=== PATIENT | male | born 1970 | race Caucasian/White ===

== ENCOUNTER 2020-09-17 00:16 | Emergency (ER) | payer MEDICAID, OTHER ==
[~2020-09-17] VITALS: Ht 180.3 cm; Wt 126.8 kg
[~2020-09-17 00:16] MED LIST: HYDR50TA4 PO; LISI40TA13 PO; LORA1TAB PO
[2020-09-17 00:20] VITALS: BP 163/119
== END 2020-09-17 00:38 ==
LOC: ER 00:17
DX: S00.91XA Abrasion of unspecified part of head, initial encounter (principal); I10 Essential (primary) hypertension; Z98.890 Other specified postprocedural states; Z72.89 Other problems related to lifestyle; Z79.899 Other long term (current) drug therapy; X58.XXXA Exposure to other specified factors, initial encounter; Y93.89 Activity, other specified; Y92.89 Other specified places as the place of occurrence of the external cause; Y99.8 Other external cause status
CPT/HCPCS: 99283

== ENCOUNTER 2021-10-08 02:59 | Emergency (ER) | payer MEDICAID ==
[~2021-10-08] VITALS: Ht 180.3 cm; Wt 65.9 kg
[2021-10-08 03:00] VITALS: BP 158/105
[2021-10-08] MEDS ORDERED: LORazepam 2 mg/ml vial IV ONE (03:10)
[2021-10-08] MEDS ORDERED: LORazepam 2 mg/ml vial IM ONE (03:10)
== END 2021-10-08 05:06 ==
LOC: ER 03:00
DX: S01.01XA Laceration without foreign body of scalp, initial encounter (principal); R45.1 Restlessness and agitation; I10 Essential (primary) hypertension; Z98.890 Other specified postprocedural states; Z79.899 Other long term (current) drug therapy; Z72.89 Other problems related to lifestyle; X58.XXXA Exposure to other specified factors, initial encounter; Y93.89 Activity, other specified; Y92.89 Other specified places as the place of occurrence of the external cause; Y99.8 Other external cause status
CPT/HCPCS: 12001; 70450; 74018; 99284

== ENCOUNTER 2024-11-14 00:30 | Emergency (ER) | payer MEDICAID ==
[~2024-11-14] VITALS: Ht 182.9 cm; Wt 152.0 kg
[2024-11-14] MEDS: LORazepam 1 MG tablet PO ONE (00:55)
[2024-11-14 01:38] LABS: BASOPHILS % (AUTO) 0.4 % (0-1); EOSINOPHILS # (AUTO) 0.1 X10'3 (0-0.9); EOSINOPHILS % (AUTO) 1.1 % (0-6); HEMATOCRIT 44.8 % (42.0-52.0); HEMOGLOBIN 15.5 g/dl (14.0-17.9); LYMPHOCYTES # (AUTO) 3.2 X10'3 (1.1-4.8); LYMPHOCYTES % (AUTO) 49.5 % (21-51); MEAN CORPUSCULAR HEMOGLOBIN 31.6 PG (27.0-31.0); MEAN CORPUSCULAR HGB CONC 34.7 g/dL (33.0-36.5); MEAN CORPUSCULAR VOLUME 91.2 FL (78-98); MEAN PLATELET VOLUME 8.9 FL (7.4-10.4); MONOCYTES # (AUTO) 0.7 X10'3 (0-0.9); NEUTROPHILS # (AUTO) 2.4 X10'3 (1.8-7.7); PLATELET COUNT 204 X10'3 (140-440); RED BLOOD COUNT 4.91 X10'6 (4.70-6.10); RED CELL DISTRIBUTION WIDTH 13.5 % (11.5-14.5); WHITE BLOOD COUNT 6.4 X10'3 (4.5-11.0)
[2024-11-14] MEDS: diphenhydrAMINE 50 mg/ml inj IM ONE (01:44)
--- NOTE | 2024-11-14 01:47 | Physician Documentation ---
History of Present Illness ~ Chief Complaint: 5150 Stated Complaint: MENTAL HEALTH EVAL Time Seen by MD: 00:38 Mode of Arrival: POV HPI Patient presents to the emergency room for suicidal ideation. He is very agitated screaming in the emergency room angry that he is not getting helped fast enough Medication Reconciliation Allergies: Coded Allergies: No Known Allergies (Unverified , 09/12/15) Scheduled Hydrochlorothiazide (Hydrochlorothiazide), 1 TABLET PO DAILY, (Reported) Lisinopril* (Lisinopril*), 1 TABLET PO DAILY, (Reported) Lorazepam* (Ativan*), 1 TABLET PO TID, (Reported) Past Medical History Past Medical History: Hypertension Past Surgical History: orthopedic surgeries, other Alcohol Use: Heavy Drug Use: none Review of Systems ROS All review of systems negative except as per HPI Physical Exam Vital Signs: Temperature: 96.8, Source: Temporal, Heart Rate: 112, Respiratory Rate: 15, BP: 148/87, Pulse Oximetry: 99, Weight: 152.000 Physical Exam General: Patient is awake, alert, oriented x4 in no acute distress Head: Normocephalic and atraumatic. Eyes: Conjunctival normal. EOMI. PERRL. ENT: Mucous membranes moist. Neck: Supple, trachea is midline. Chest: Clear to auscultation bilaterally without rales, rhonchi, or wheezes. There is no accessory muscle use or retractions. Cardiac: Tachycardic and regular without murmurs, gallops, or rubs. Psych: Suicidal, agitated, uncooperative Progress Results/Orders Results/Orders Orders - SIXTO AGUIRRE MD Urinalysis (11/14/24 00:38) Drug Screen, Urine (11/14/24 00:38) Med Rec (11/14/24 00:38) Close Observation Level (11/14/24 00:38) Covid19 Binax Poc Result Entry (11/14/24 00:38) Substance Use Navigator (11/14/24 00:38) Regular Diet (11/14/24 Breakfast) 1799.11 (11/14/24 01:40) * Blood Glucose Assessment * ACHS (11/14/24 04:26) Completed Orders - SIXTO AGUIRRE MD Lorazepam Tablet (Ativan Tablet) (11/14/24 00:40) Cbc/Diff (11/14/24 00:38) Ethanol (11/14/24 00:38) TSH (11/14/24 00:38) BMP (11/14/24 00:38) Haloperidol Lact. (Haldol) (11/14/24 01:40) Diphenhydramine Inj (Benadryl Inj.) (11/14/24 01:40) Lorazepam Inj (Ativan Inj) (11/14/24 01:40) Potassium Cl Sr Tablet (K-Dur Tablet) (11/14/24 02:02) Medications Received in ER Medications (Trade) Dose Ordered Sig/Ashleigh Route PRN Reason Start Time Stop Time Status Last Admin Dose Admin (Ativan tablet) 2 mg ONCE ONCE PO 11/14/24 00:40 11/14/24 00:41 DC 11/14/24 00:55 2 MG (Haldol) 10 mg ONCE ONCE IM 11/14/24 01:40 11/14/24 01:46 DC 11/14/24 01:50 10 MG (Benadryl inj.) 50 mg ONCE ONCE IM 11/14/24 01:40 11/14/24 01:41 DC 11/14/24 01:44 50 MG (Ativan inj) 2 mg ONCE ONCE IM 11/14/24 01:40 11/14/24 01:46 DC 11/14/24 01:50 2 MG Vital Signs 11/14/24 11/14/24 11/14/24 11/14/24 00:41 01:35 02:49 04:15 Temp 96.8 Pulse 112 94 89 Resp 15 16 16 B/P (MAP) 148/87 106/69 (81) 112/65 (81) Pulse Ox 99 93 95 O2 Flow Rate 0 0 11/14/24 05:47 Pulse 105 Resp 14 B/P (MAP) 137/89 (105) Pulse Ox 96 O2 Flow Rate 0 Laboratory Tests Test 11/14/24 00:46 11/14/24 02:04 11/14/24 05:43 White Blood Count 6.4 Red Blood Count 4.91 Hemoglobin 15.5 Hematocrit 44.8 Mean Corpuscular Volume 91.2 Mean Corpuscular Hemoglobin 31.6 H Mean Corpuscular Hemoglobin Concent 34.7 Red Cell Distribution Width 13.5 Platelet Count 204 Mean Platelet Volume 8.9 Neutrophils (%) (Auto) 38.0 L Lymphocytes (%) (Auto) 49.5 Monocytes (%) (Auto) 11.0 Eosinophils (%) (Auto) 1.1 Basophils (%) (Auto) 0.4 Neutrophils # (Auto) 2.4 Lymphocytes # (Auto) 3.2 Monocytes # (Auto) 0.7 Eosinophils # (Auto) 0.1 Basophils # (Auto) 0.0 CBC Comment Sodium Level 139 Potassium Level 3.3 L Chloride Level 104 Carbon Dioxide Level 24.0 Anion Gap 11 Blood Urea Nitrogen 10 Creatinine 1.02 Estimated GFR/1.73 m2 77 BUN/Creatinine Ratio 9.8 L Glucose Level 430 *H Calcium Level 9.2 Albumin 4.0 Thyroid Stimulating Hormone (TSH) 1.56 Chemistry Comments Ethyl Alcohol Level 196 H SARS-CoV-2 Antigen (Rapid) Negative Glucometer 319 H Medical Decision Making Findings Patient presented to the emergency room for suicidal ideation. Patient placed on a 1799. Noted hypokalemia which has been supplemented. Noted hyperglycemia which is improving spontaneously. He is not in diabetic ketoacidosis. No other evidence of major pathologic derangements and patient is medically cleared for mental health evaluation . Noted alcohol intoxication however no symptoms of withdrawal. Departure Disposition: 30 STILL A PATIENT Impression: Primary Impression: Hypokalemia Additional Impressions: Suicidal ideation Alcoholic intoxication Condition: Guarded Referrals: NO PRIMARY CARE PROVIDER (PCP) Signature Scribe Signature: No scribe Attestation: The note accurately reflects work and decisions made by me.Sixto Aguirre MD 11/14/24 06:05 SIXTO AGUIRRE MD Nov 14, 2024 01:47
[2024-11-14] MEDS: LORazepam 2 mg/ml vial IM ONE (01:50)
[2024-11-14] MEDS: haloperidol lactate 5mg/ml inj IM ONE (01:50)
[2024-11-14 01:59] LABS: ANION GAP 11 (8-16); BLOOD UREA NITROGEN 10 MG/DL (7-18); BUN/CREATININE RATIO 9.8 (10.0-20.0); CALCIUM 9.2 MG/DL (8.5-10.1); CHLORIDE 104 MMOL/L (99-107); CREATININE 1.02 MG/DL (0.60-1.10); ETHANOL 196 MG/DL (<10); POTASSIUM 3.3 MMOL/L (3.5-5.1); SODIUM 139 MMOL/L (135-145); THYROID STIMULATING HORMONE 1.56 ulU/ml (0.34-4.50); eCRCL 93 ML/MIN; eGFR 77 ML/MIN
[2024-11-14 02:01] LABS: GLUCOSE 430 MG/DL (70-104)
[2024-11-14] MEDS: potassium Cl 20 mEq SR tablet PO STA (08:38)
[2024-11-14] MEDS ORDERED: INSU100I31 SQ (09:03)
[2024-11-14] MEDS ORDERED: INSU100V5 SQ (09:03)
[2024-11-14] MEDS ORDERED: LISI20TA28 PO (09:03)
[2024-11-14] MEDS ORDERED: DEXTROSE 15 GM of carb/4 tabs (each vial/BOTTLE has 4 tablets) PO PRN ×6 (09:10→10:30)
[2024-11-14] MEDS ORDERED: dextrose 50%-water 50ml dispensing syringe IV PRN ×6 (09:10→10:30)
[2024-11-14] MEDS ORDERED: glucagon, human recombinant 1mg kit SUBCUT PRN ×3 (09:10→10:30)
[2024-11-14] MEDS ORDERED: INSULIN LISPRO 100 UNIT/ML INSULN.PEN MULTI-DOSE SQ SCH ×6 (12:00→17:30)
[2024-11-14 13:34] LABS: BILIRUBIN,URINE NEGATIVE (Neg); CLARITY,URINE CLEAR (Clear); COLOR,URINE YELLOW (Yellow); GLUCOSE, URINE >=1000 mg/dl (Neg); KETONES,URINE 15 mg/dl (Neg); LEUKOCYTE ESTERASE ,URINE NEGATIVE (Neg); NITRITES, URINE NEGATIVE (Neg); OCCULT BLOOD,URINE NEGATIVE (Neg); PROTEIN,URINE NEGATIVE (Neg); UROBILINOGEN,URINE 0.2 E.U/dL (0.2-1.0)
[2024-11-14 13:37] LABS: URINE AMPHETAMINE SCREEN NEGATIVE (Neg); URINE BARBITUATE SCREEN NEGATIVE (Neg); URINE BENZODIAZEPINES SCREEN NEGATIVE (Neg); URINE CANNABINOID SCREEN NEGATIVE (Neg); URINE COCAINE SCREEN NEGATIVE (Neg); URINE METHADONE SCREEN NEGATIVE (Neg); URINE OPIATE SCREEN NEGATIVE (Neg); URINE PHENCYCLIDINE SCREEN NEGATIVE (Neg)
[2024-11-14 13:40] LABS: UA COLLECTION TYPE URINAL
[2024-11-14 13:41] LABS: BACTERIA,URINE NONE SEEN /HPF (Neg); MUCUS STRANDS NONE SEEN /LPF (Neg); RBC,URINE NONE SEEN /HPF (0-2); SQUAMOUS EPITHELIAL CELL,UR FEW /LPF (FEW); WBC,URINE NONE SEEN /HPF (0-4)
[2024-11-14 17:33] VITALS: BP 156/99; PULSE 98; RESP 14; TEMP 97.8; O2SAT 96
[2024-11-14] MEDS ORDERED: insulin glargine (Lantus) pen - multi-dose SQ SCH ×2 (21:00)
[2024-11-15] MEDS ORDERED: INSULIN LISPRO 100 UNIT/ML INSULN.PEN MULTI-DOSE SQ SCH (07:30)
[2024-11-15] MEDS ORDERED: lisinopril 20mg tablet PO SCH (08:00)
== END 2024-11-14 17:40 | disposition still patient (30) ==
LOC: ER 00:31
DX: E87.6 Hypokalemia (principal); R45.851 Suicidal ideations; F10.129 Alcohol abuse with intoxication, unspecified; E11.9 Type 2 diabetes mellitus without complications; I10 Essential (primary) hypertension; Z20.822 Contact with and (suspected) exposure to COVID-19; Z79.899 Other long term (current) drug therapy; Y90.9 Presence of alcohol in blood, level not specified
CPT/HCPCS: 36415; 80048; 80305; 80320; 81001; 82948; 83036; 84443; 85025; 87811; 96372; 99285; J1200; J1630; J2060; J1815

== ENCOUNTER 2025-04-13 13:44 | Emergency (ER) | payer MEDICAID ==
[~2025-04-13] VITALS: Ht 177.8 cm; Wt 100.5 kg
[~2025-04-13 13:44] MED LIST changes: -HYDR50TA4 PO; +INSU100I31 SQ; +INSU100V5 SQ; +LISI20TA28 PO; -LISI40TA13 PO; -LORA1TAB PO
[2025-04-13 13:54] VITALS: TEMP 97.1
--- NOTE | 2025-04-13 14:11 | Physician Documentation ---
History of Present Illness ~ Chief Complaint: ETOH Stated Complaint: ETOH Time Seen by MD: 13:49 HPI 54-year-old male with a long history of alcohol intoxication and abuse presents today with a complaint of ETOH withdrawal. It is that his last drink was earlier this morning in adds that he drinks approximately 1.75 L of hard alcohol daily. States he has got abdominal pain and nausea currently In addition patient has a long history of psychiatric illness including psychiatric hold for suicide ideation according to patient's records he is a current Suboxone patient, and is a known diabetic. Has a history of using methamphetamine Tetanus within 5 years?: No Medication Reconciliation Allergies: Coded Allergies: No Known Allergies (Unverified , 04/13/25) Scheduled Insulin Glargine,Hum.rec.anlog (Basaglar Kwikpen U-100), 80 UNITS SQ HS, (Reported) Insulin Regular, Human (Humulin R), 2-10 UNITS SQ ACHS, (Reported) Lisinopril (Lisinopril), 1 TAB PO DAILY, (Reported) Past Medical History Past Medical History: Hypertension Past Surgical History: orthopedic surgeries, other Alcohol Use: Heavy Drug Use: none Physical Exam Vital Signs: Temperature: 97.1, Source: Temporal, Heart Rate: 111, Respiratory Rate: 24, BP: 90/62, Pulse Oximetry: 98, Weight: 100.500 Oxygen Flow Rate: 0 Progress Progress Note Patient has been crying incessantly in his room and is not easily consoled. He has received current Valium in multiple medications for suspected alcohol withdrawal Since states that his [facility] therapist was not available for him yesterday and he is upset about that. Results/Orders Results/Orders Completed Orders - AJ PATEL CRIMINAL RECORDS TECHNICIAN Normal Saline 1000ml (0.9% Sodium Chlori (04/13/25 14:10) Diazepam Inj (Valium Inj) (04/13/25 14:10) Thiamine Inj. (Thiamine Inj.) (04/13/25 14:10) Folic Acid Inj. (Folic Acid Inj.) (04/13/25 14:10) Magnesium Sulf-Water 2g/50ml (Magnesium (04/13/25 14:10) Cbc/Diff (04/13/25 14:09) BMP (04/13/25 14:09) Lipase (04/13/25 14:09) CMP (04/13/25 14:09) Electrocardiogram (04/13/25 ) Medications Received in ER Medications (Trade) Dose Ordered Sig/Ashleigh Route PRN Reason Start Time Stop Time Status Last Admin Dose Admin (0.9% sodium chloride (NS) 1000ml IV soln) 2,000 ml ONCE ONCE IVB 04/13/25 14:10 04/13/25 14:11 DC 04/13/25 14:21 2,000 ML (Valium inj) 10 mg ONCE ONCE IV 04/13/25 14:10 04/13/25 14:11 DC 04/13/25 14:27 10 MG (thiamine inj.) 100 mg ONCE ONCE IV 04/13/25 14:10 04/13/25 14:11 DC 04/13/25 14:26 100 MG (folic acid inj.) 1 mg ONCE ONCE IV 04/13/25 14:10 04/13/25 14:15 DC 04/13/25 15:11 1 MG Magnesium Sulfate 50 ml @ 0 mls/hr ONCE ONCE IV 04/13/25 14:10 04/13/25 14:11 DC 04/13/25 15:23 40 MLS/HR Vital Signs 04/13/25 04/13/25 04/13/25 04/13/25 13:54 14:11 14:27 15:29 Temp 97.1 Pulse 111 100 Resp 24 15 15 16 B/P (MAP) 90/62 146/93 (110) Pulse Ox 98 98 O2 Flow Rate 0 04/13/25 16:33 Pulse 60 Resp 17 B/P (MAP) 150/98 Pulse Ox 96 Laboratory Tests Test 04/13/25 14:19 White Blood Count 4.8 Red Blood Count 5.53 Hemoglobin 17.9 Hematocrit 51.3 Mean Corpuscular Volume 92.8 Mean Corpuscular Hemoglobin 32.4 H Mean Corpuscular Hemoglobin Concent 34.9 Red Cell Distribution Width 13.5 Platelet Count 277 Mean Platelet Volume 7.2 L Neutrophils (%) (Auto) 42.9 Lymphocytes (%) (Auto) 46.7 Monocytes (%) (Auto) 10.0 Eosinophils (%) (Auto) 0.1 Basophils (%) (Auto) 0.3 Neutrophils # (Auto) 2.1 Lymphocytes # (Auto) 2.3 Monocytes # (Auto) 0.5 Eosinophils # (Auto) 0.0 Basophils # (Auto) 0.0 CBC Comment Sodium Level 139 Potassium Level 4.1 Chloride Level 102 Carbon Dioxide Level 24.8 Anion Gap 12 Blood Urea Nitrogen 17 Creatinine 0.90 Estimated GFR/1.73 m2 89 BUN/Creatinine Ratio 18.9 Glucose Level 154 H Calcium Level 9.0 Total Bilirubin 0.7 Aspartate Amino Transf (AST/SGOT) 51 H Alanine Aminotransferase (ALT/SGPT) 38 Alkaline Phosphatase 85 Total Protein 9.6 H Albumin 4.2 Globulin 5.4 H Albumin/Globulin Ratio 0.8 L Lipase 24 Chemistry Comments Ethyl Alcohol Level 345 H Medical Decision Making Additional information obtaine: old records Findings Was provided a low dose of Valium and and various other alcohol-related supplements including thiamine folic acid and magnesium he also received a fluid bolus. Who discovered that his EtOH level was well over the legal limit. Indicating the patient was not in any acute withdrawal For the fluid bolus and a gait test, we are going to discharge the patient Differential Dx:Considerations: Intoxication - ETOH, Intoxication - other drug, Sub. Abuse -continuous, Sub. Abuse-intermittent, Skull fracture, Fracture - other bone, Personality disorder, Closed head injury, Cervical spine injury, Abrasion, Confusion, Hematoma, Laceration, Foreign body, Dehydration, Encephalopathy, Hepatitis, Pancreatitis, Thiamine deficiency, Other Departure Disposition: 01 HOME / SELF CARE / HOMELESS Impression: Primary Impression: Alcoholic intoxication Discharge Instructions: Alcohol Intoxication Referrals: NO PRIMARY CARE PROVIDER (PCP) Signature Scribe Signature: g Attestation: Scribed for Aj Patel Security Technician by Aj Skelton NP . 04/13/25 21:52 AJ PATEL NP Apr 13, 2025 14:11
--- NOTE | 2025-04-13 14:17 | ELECTROCARDIOGRAPH REPORT ---
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 GHAZAL Wood Measurements Intervals [place] Rate: 91 P: 78 PA: 147 QRS: 87 QRSD: 88 T: 54 QT: 344 QTc: 424 Interpretive Statements Sinus rhythm ST elevation suggests acute pericarditis Baseline wander in lead(s) I,II,III,aVL,aVF,V3,V6 Electronically Signed On 04-14-2025 12:59:[address] GHAZAL Wood Please click the below link to view image of tracing.
[2025-04-13] MEDS: normal saline 1000ML IV soln IVB ONE (14:21)
[2025-04-13] MEDS: thiamine 100mg/ml 2ml inj. IV ONE (14:26)
[2025-04-13] MEDS: diazepam inj 5 MG/ML inj. IV ONE (14:27)
[2025-04-13 14:30] LABS: MEAN PLATELET VOLUME 7.2 FL (7.4-10.4); RED CELL DISTRIBUTION WIDTH 13.5 % (11.5-14.5)
[2025-04-13 14:45] LABS: CREATININE 0.90 MG/DL (0.60-1.10); TOTAL CARBON DIOXIDE 24.8 MMOL/L (24-32); eCRCL 99 ML/MIN; eGFR 89 ML/MIN
[2025-04-13] MEDS: folic acid 1mg/0.2ml inj IV ONE (15:11)
[2025-04-13] MEDS: magnesium sulf-water 2g/50mL 50 ML IV ONE (15:23)
[2025-04-13 16:33] VITALS: BP 150/98; PULSE 60; RESP 17; O2SAT 96
== END 2025-04-13 16:35 | disposition home or self-care (01) ==
LOC: ER 13:45
DX: F10.129 Alcohol abuse with intoxication, unspecified (principal); R10.9 Unspecified abdominal pain; E11.9 Type 2 diabetes mellitus without complications; I10 Essential (primary) hypertension; Y90.9 Presence of alcohol in blood, level not specified
CPT/HCPCS: 36415; 80053; 80320; 83690; 85025; 93005; 96361; 96365; 96375; 99284; J3360; J3411; J3490; J7030